=== PATIENT | female | born 1995 | race African-American/Black ===

== ENCOUNTER 2025-04-13 10:35 | Emergency (ER) | payer MEDICAID, SELFPAY ==
[2025-04-13 10:42] VITALS: BP 124/84; PULSE 87; RESP 16; TEMP 36.2; O2SAT 100
--- NOTE | 2025-04-13 11:13 | ED_ITS ---
HPI - Extremity Problem General Chief complaint: Extremity Problem,Nontraumatic Stated complaint: Left Arm Problem Time Seen by Provider: 04/13/25 11:05 Source: patient, RN notes reviewed and old records reviewed Mode of arrival: ambulatory Limitations: no limitations History of Present Illness HPI Narrative: 29 year old female presents to [facility] with complaints of bruise to her left upper arm which is dark purple in color with some aching discomfort to area. Patient reports that she donat plasma 2 days ago and had Iv site to her left antecubital area. Patient has no acute swelling to her left upper arm, pulses to left arm are strong and has no complaints of any tingling or numbness to her left arm or hand, has full mobility of left arm. Patient has not taken any OTC medication for her iscomfort or applied any ice to area of bruise, ice applied while in clinic. MD Complaint: other (bruise to left upper arm with discomfort) Onset (ago): day(s) (2) Pain Consistency: colicky Location: left and upper extremity (mid way up left upper arm) Severity scale (1-10): 4 Quality: aching Radiation: none Related Data Home Medications ?Medication ?Instructions ?Recorded ?Confirmed ?Last Taken ?Type No Home Medications 04/13/25 Unknown H istory Allergies Allergy/AdvReac Type Severity Reaction Status Date / Time No Known Allergies Allergy Verified 04/13/25 10:47 Review of Systems Review of Systems: CONSTITUTIONAL: Denies fever, chills, or sweats. EYES: Denies visual changes, redness, or discharge. ENT: Denies rhinorrhea, congestion, sore throat, or otalgia. CARDIOVASCULAR: Denies chest pain, palpitations, or edema. RESPIRATORY: Denies cough or dyspnea. GASTROINTESTINAL: Denies abdominal pain, nausea, vomiting, or diarrhea. GENITOURINARY: Denies dysuria or hematuria. SKIN: Denies rash or itching.has bruise noted to mid left upper arm with no warmth or swelling of area reports some aching discomfort MUSCULOSKELETAL: Denies back pain, joint pain, or myalgia. NEUROLOGIC: Denies headache, numbness, or weakness. PSYCHIATRIC: Denies anxiety or depression. All systems reviewed & are unremarkable except as noted in HPI and below PMFSH Past Medical History Medical History (Updated 04/14/25 @ 19:40 by Jeana Nielsen APRN) Medical history non-contributory Surgical History Surgical History (Updated 04/14/25 @ 19:32 by Jeana Nielsen APRN) No history of previous surgery Social History Social History (Updated 04/14/25 @ 19:34 by Jeana Nielsen APRN) Smoking status: Never smoker Alcohol intake: current Alcohol use details: rare Substance use type: does not use Living arrangements: with family Gender identity (if verbalized by the patient): Female Comments At time of signature, agree with nursing past medical, surgical, social and family history. There is no relevant family history pertinent to the presenting complaint Exam Narrative: GENERAL: Well-appearing, well-nourished, and in no acute distress. HEAD: Normocephalic, atraumatic. EYES: PERRLA and EOMI. ENT: Nares clear, no rhinorrhea or epistaxis. Mucous membranes moist. NECK: Supple.no lymphadenopathy CHEST: Clear to auscultation. No respiratory distress.SAO2 100% on room air HEART: Regular rate and rhythm. No murmur heard. Normal peripheral pulses. ABDOMEN: Soft, nontender, nondistended, normal active bowel sounds. EXTREMITIES: Normal range of motion. No edema SKIN: Warm, dry, no rash. bruise on left upper arm about midway up arm, suspect form tourniquet use when she gave plasma 2 days ago IV site was in left antecubital. Patient has strong pulses to her left arm no warm or swelling noted to left upper arm, denies any tingling or numbness to left arm or hand brisk capillary refill with full mobility of left arm. NEURO: No focal deficits. Alert and oriented x3. Course Course Emergency Course: Patient is aware of diagnosis, understands and agrees to treatment plan.? Anticipatory guidance given.? Patient agrees to follow-up as directed and is aware of reasons to seek care at the emergency department. Portions of this record may have been created with voice recognition software Level of Care: Express Care Visit Vital Signs Vital signs: Vital Signs Temperature 36.2 C L 04/13/25 10:42 Pulse Rate 87 04/13/25 10:42 Respiratory Rate 16 04/13/25 10:42 Blood Pressure 124/84 04/13/25 10:42 Pulse Oximetry 100 04/13/25 10:42 Oxygen Delivery Room Air 04/13/25 10:42 Temperature 36.2 C L 04/13/25 10:42 Pulse Rate 87 04/13/25 10:42 Respiratory Rate 16 04/13/25 10:42 Blood Pressure 124/84 04/13/25 10:42 Pulse Oximetry 100 04/13/25 10:42 Oxygen Delivery Room Air 04/13/25 10:42 Reviewed MDM - Extremity (Nontraumatic) Differential Diagnosis Differential diagnosis: Likely other (bruising to left upper arm, discomfort to left upper arm, bruising from tourniquet to left upper arm) Medical Records Attestation: I reviewed the patient's medical records. Critical Care Time Critical Care Time Critical Care Time: No Discharge Plan Discharge Clinical Impression: Traumatic ecchymosis of left upper arm Patient Disposition: Home Condition: Stable Instructions: Contusion in Adults (ED) Additional Instructions: Tylenol for lesser pain Ibuprofen regularly for the next 2-3 days for the inflammation Follow-up with PCP if further problems or concerns Ice to the area 20-30 minutes 4-6 times a day Elevate above heart If increased bruising or swelling of left upper arm and pain go to the emergency room for follow-up If your symptoms persist, change or worsen significantly before you can contact your personal physician then please, without delay, go to the emergency department for further evaluation. Follow-up with PCP in 7-10 days or sooner if needed Follow up with PCP soon in regards to your blood pressure which is elevated above threshold for referral. Blood pressure above 120/80 may indicate pre- hypertension. minimal elevation 124/80 Patient Language: Mohawk Prescriptions: No Action No Home Medications Follow-up/Referrals: PHYSICIAN,DRY TRANSFER WORKER [Primary Care Provider, Internal Medicine] Time of Disposition: 11:22 Quality [place] Coma Scale Eyes: Open Verbal: Oriented and Alert Motor: Follows Commands [place] Coma Total Score: 15
== END 2025-04-13 11:30 | disposition home or self-care (01) ==
PROVIDERS: Emergency Provider Registered Nurse
DX: S40.022A Contusion of left upper arm, initial encounter (principal); X58.XXXA Exposure to other specified factors, initial encounter
CPT/HCPCS: 99202; G0463